=== PATIENT | male | born 1970 | race Hispanic/Latino ===

== ENCOUNTER → 2020-10-08 | Day surgery (SDC) | payer BC ==
[~2020-10-08] MED LIST: GLUCAGON FOR INJ 1 MG VIAL ONE; HYOSCYAMINE SULFATE 0.5 MG/ML INJ ONE; PROPOFOL IV EMULSION 10 MG/ML 20 ML VIAL ONE
[2020-10-08 11:40] VITALS: BP 128/91
== END | disposition home or self-care (01) ==
LOC: OR 07:41
PROVIDERS: ATTEND Internal Medicine Gastroenterology
DX: Z12.11 Encounter for screening for malignant neoplasm of colon (principal); D12.2 Benign neoplasm of ascending colon; D12.3 Benign neoplasm of transverse colon; D12.4 Benign neoplasm of descending colon; K57.30 Diverticulosis of large intestine without perforation or abscess without bleeding; K64.8 Other hemorrhoids; Z01.810 Encounter for preprocedural cardiovascular examination; Z01.812 Encounter for preprocedural laboratory examination; Z20.822 Contact with and (suspected) exposure to COVID-19; Z86.16 Personal history of COVID-19
CPT/HCPCS: 45380; 45385; 93005; J1610; J1980; J2704; U0002; 45378

== ENCOUNTER → 2021-10-21 | Day surgery (SDC) | payer BC ==
[~2021-10-21] MED LIST changes: +FENTANYL CITRATE/PF 100MCG/2 ML INJ ONE; -GLUCAGON FOR INJ 1 MG VIAL ONE; +LIDOCAINE HCL 2% LOCAL INJ 5 ML SDV VIAL INJ ONE; +METOCLOPRAMIDE HCL 10 MG/2ML VIAL ONE; +MIDAZOLAM HCL 2 MG/2 ML VIAL ONE; +POVIDONE IODINE 0.05% 0.05 % ML PO ONE
[2021-10-21 12:15] VITALS: BP 107/85
== END | disposition home or self-care (01) ==
LOC: OR 08:42
PROVIDERS: ATTEND Internal Medicine Gastroenterology
DX: K63.3 Ulcer of intestine (principal); D12.3 Benign neoplasm of transverse colon; D12.4 Benign neoplasm of descending colon; K57.30 Diverticulosis of large intestine without perforation or abscess without bleeding; K64.8 Other hemorrhoids; Z71.3 Dietary counseling and surveillance; Z01.810 Encounter for preprocedural cardiovascular examination; Z20.822 Contact with and (suspected) exposure to COVID-19; Z68.32 Body mass index [BMI] 32.0-32.9, adult; Z80.0 Family history of malignant neoplasm of digestive organs
CPT/HCPCS: 45380; 45385; 93005; J1980; J2001; J2250; J2704; J2765; J3010; U0002; 45378